=== PATIENT | male | born 1935 | race Two or more races ===

== ENCOUNTER 2019-06-08 08:16 | Outpatient (CLI) | payer OTHER | END 2019-06-08 10:11 | disposition home or self-care (01) | LOC: NUCLEAR 08:16 | DX: R60.0 Localized edema (principal); R06.09 Other forms of dyspnea; I11.0 Hypertensive heart disease with heart failure; E11.9 Type 2 diabetes mellitus without complications; N18.9 Chronic kidney disease, unspecified; N40.0 Benign prostatic hyperplasia without lower urinary tract symptoms; F17.211 Nicotine dependence, cigarettes, in remission; F10.11 Alcohol abuse, in remission | CPT/HCPCS: 78452; 93017; 93970; A9500; J0153 ==